=== PATIENT | male | born 1955 ===

== ENCOUNTER 2017-03-17 14:17 | Emergency (ER) | payer OTHER ==
[2017-03-17] MEDS ORDERED: Lidocaine 2% Inj (20ml) ONE (14:53)
[2017-03-17] MEDS ORDERED: Lidocaine 2% Inj (20ml) INFIL ONE (15:00)
[2017-03-17] MEDS ORDERED: Tetanus/Diphtheria Toxoids 0.5 ml Syringe IM ONE ×2 (15:00→15:12)
--- NOTE | 2017-03-17 15:01 | C.PDOC ---
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 Otherwise, denies any active bleeding, wound discharge, deformity, sensory vascular deficits, or any other associated symptoms at this time. Pt ambulated to ED, not in any apparent distress. 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) Current Symptoms Are (Timing): Still Present Recent travel outside of the [place]: No Additional History Per: Patient - Knee Description Of Injury: Laceration Past Medical History Reviewed: Historical Data, Nursing Documentation, Vital Signs Vital Signs: Last Vital Signs Temp 97.8 F 03/17/17 15:50 Pulse 80 03/17/17 15:50 Resp 20 03/17/17 15:50 BP 150/76 03/17/17 15:50 Pulse Ox 100 03/17/17 15:57 - Medical History PMH: HTN Family History: States: Unknown Family Hx - Social History Hx Alcohol Use: No Hx Substance Use: No Review Of Systems Except As Marked, All Systems Reviewed And Found Negative. Constitutional: Negative for: Fever, Chills Musculoskeletal: Negative for: Leg Pain Skin: Positive for: Other (laceration to right kne) Neurological: Negative for: Weakness, Numbness Physical Exam - Physical Exam Appears: Well, Non-toxic, No Acute Distress Skin: Normal Color, Warm, Other ((+)4cm through dermis laceration anterior / superior aspect Right knee just above patella. No bleeding, no wound FB, no defomrity noted.) Extremity: Normal ROM (Right knee), Tenderness (mild Right sueprior/anterior knee. FAROM of Right knee, no neurovascular deficits.), No Deformity, No Swelling Neurological/Psych: Oriented x3, Normal Speech, Normal Motor, Normal Sensation, Normal Reflexes ED Course And Treatment O2 Sat by Pulse Oximetry: 100 (RA) Pulse Ox Interpretation: Normal - Other Rad Right knee X-Ray: Interpreted by Me, Viewed By Me Interpretation: no FB, no acute fx or dislocation Progress Note: Pt was given Tetanus vaccination. Laceration was repaired. Patient tolerated procedure well, no immediate complications. On re-eavl, pt malena febrile, hemodynamicaly stable. non-toxic. Ambulatory in ED with stable gait. RLE: laceration repaired. FAROM, no neurovascular deficits. xray review and appears noraml. Pt advised on course of ds and wound care. ref. to f/u with PMD, Ortho in 2-3 days for re-eavl. return if any new changes. Laceration - Laceration Repair Right knee Wound Length (In cm): 4 Description Of Wound: Irregular (though dermis) Wound Cleansed With: Betadine, Sterile Saline Anesthesia: Lidocaine 2% Wound Examination: Irrigated With Saline, No FB With Wound Exploration, No Tendon Injury With Wound Exploration Wound Closure: Free Soil (#10) Suture Technique And Material Used: Chromic (4-0#4) Wound Complexity: Intermediate Disposition Counseled Patient/Family Regarding: Studies Performed, Diagnosis, Need For Followup, Rx Given - Disposition Referrals: Shyam Esparza III, MD [Staff Provider] - Disposition: HOME/ ROUTINE Disposition Time: 15:53 Condition: STABLE Additional Instructions: Avoid prolong walking, knee bending/steps for 1 week Keep wound clean, dry José removal in 2 weeks Return to ED at any time if any sign of infection-fever, wound redness, pain, discharge or any other new changes. 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 - Scribe Statement The provider has reviewed the documentation as recorded by the Candyibina Rhodes All medical record entries made by the Candyibina were at my direction and personally dictated by me. I have reviewed the chart and agree that the record accurately reflects my personal performance of the history, physical exam, medical decision making, and the department course for this patient. I have also personally directed, reviewed, and agree with the discharge instructions and disposition.
[2017-03-17 15:51] VITALS: BP 150/76; PULSE 80; RESP 20; TEMP 97.8
[2017-03-17 16:37] VITALS: O2SAT 98
--- NOTE | 2017-03-17 18:06 | RAD ---
PROCEDURE: Right Knee Radiographs. HISTORY: injury COMPARISON: None. FINDINGS: BONES: No definitive radiographic evidence of acute displaced fracture nor dislocation. The osseous structures appear intact. JOINTS: Joint spaces preserved. No significant osteoarthritis. JOINT EFFUSION: There does appear to be small suprapatellar joint effusion. OTHER FINDINGS: Skin closure lacey seen within the medial distal anterior thigh consistent, reducing a skin surface laceration IMPRESSION: No evidence of acute displaced fracture nor dislocation. Small suprapatellar joint effusion. Status post laceration reduction with multiple skin closure lacey anterior the distal medial thigh
== END 2017-03-17 16:46 | disposition home or self-care (01) ==
LOC: C.ER 14:17
DX: S81.011A Laceration without foreign body, right knee, initial encounter (principal); W29.3XXA Contact with powered garden and outdoor hand tools and machinery, initial encounter; Y93.89 Activity, other specified; Y92.008 Other place in unspecified non-institutional (private) residence as the place of occurrence of the external cause